=== PATIENT | female | born 1970 | race Caucasian/White ===

== ENCOUNTER 2019-01-26 14:51 | Emergency (ER) | payer BC, OTHER ==
[~2019-01-26] VITALS: Ht 157.5 cm; Wt 105.0 kg
[2019-01-26 15:46] LABS: URINE BILIRUBIN - DIPSTICK NEGATIVE (NEGATIVE); URINE BLOOD DIPSTICK LARGE (NEGATIVE); URINE COLOR YELLOW; URINE GLUCOSE - DIPSTICK NEGATIVE (NEGATIVE); URINE KETONE TRACE mg/dL (NEGATIVE); URINE LEUK ESTERASE NEGATIVE (NEGATIVE); URINE PROTEIN - DIPSTICK 100 mg/dL (NEG-TRACE); URINE SPECIFIC GRAVITY >=1.030
[2019-01-26 15:51] LABS: URINE NITRITE - DIPSTICK POSITIVE (Negative)
[2019-01-26 15:52] LABS: HEMATOCRIT 33.1 % (37.0-47.0); HEMOGLOBIN 10.1 g/dl (12.0-16.0); IMMATURE GRANULOCYTES 0.4 % (0.0-5.0); MEAN CELL VOLUME 82.1 fL CALC (80.0-100.0); MEAN CORPUSCULAR HGB 25.1 pG CALC (26.0-32.0); MEAN CORPUSCULAR HGB CONC 30.5 g/L CALC (32.0-36.0); NEUT# 6.17 thou/uL (2.00-7.15); RED BLOOD COUNT 4.03 mill/uL (4.20-5.60)
[2019-01-26 16:04] LABS: ALBUMIN 4.3 g/dL (3.2-5.0); ALKALINE PHOSPHATASE 57 u/l (38-126); ANION GAP 15 (6-22 (CALC)); BILIRUBIN, TOTAL 0.4 mg/dL (0.0-1.4); BUN 13 mg/dL (7-17); BUN/CREATININE RATIO 19 (12-20 (CALC)); CARBON DIOXIDE 23 mmol/l (22-30); CHLORIDE 107 mmol/l (95-108); CREATININE 0.7 mg/dL (0.5-1.0); GFR > 60 ML/MIN (>=60 (CALC)); GFR FOR AFR.AMER. > 60 ML/MIN (>=60 (CALC)); SGOT/AST 32 u/l (14-36); SODIUM 142 mmol/l (137-146); TOTAL PROTEIN 7.3 g/dL (6.3-8.2)
[2019-01-26 16:10] LABS: BARBITURATES NEGATIVE (NEGATIVE); COCAINE NEGATIVE (NEGATIVE); METHADONE NEGATIVE (NEGATIVE); OXCYCODONE NEGATIVE (NEGATIVE); TETRAHYDROCANNABIONOL NEGATIVE (NEGATIVE); TRICYLIC ANTIDEPRESSANTS NEGATIVE (NEGATIVE); URINE BACTERIA FEW hpf; URINE RBC TNTC RBC/hpf (0-5); URINE SQUAMOUS EPITHELIAL CELL FEW EPI/hpf (0-FEW)
[2019-01-26 16:17] LABS: MYOGLOBIN 21 ng/mL (0 - 62)
[2019-01-26] MEDS ORDERED: LOPRESSOR25 M1 PO (16:33)
[2019-01-26 16:54] VITALS: BP 158/77
== END 2019-01-26 16:56 | disposition home or self-care (01) | DRG 310 ==
LOC: ED 14:51
PROVIDERS: Emergency Medicine
DX: R00.2 Palpitations (principal)

== ENCOUNTER 2021-11-09 12:51 | Observation (INO) | payer SELFPAY ==
[~2021-11-09] VITALS: Ht 160 cm; Wt 110.7 kg
[2021-11-09] VITALS (18 sets, daily range): BP systolic 109–172; BP diastolic 55–103
[~2021-11-09 12:51] MED LIST: LOPRESSOR25 M1 PO
--- NOTE | 2021-11-09 13:49 | NUR ---
PT ESCORTED TO ROOM FOR EVALUATION OF LOW HGB REFERRAL FROM VANESSA BURNS
[2021-11-09 13:51] LABS: IMMATURE GRANULOCYTES 0.4 % (0.0-5.0); MEAN CELL VOLUME 69.2 fL CALC (80.0-100.0); MEAN CORPUSCULAR HGB 18.7 pG CALC (26.0-32.0); MEAN CORPUSCULAR HGB CONC 27.1 g/dL CAL (32.0-36.0); NEUT# 3.9 thou/uL (2.00-7.15); RED BLOOD COUNT 3.47 mill/uL (4.20-5.60); RED CELL DISTRI WIDTH 19.3 % (11.5-15.5)
[2021-11-09 13:54] LABS: HEMOGLOBIN 6.5 g/dl (12.0-16.0)
[2021-11-09 13:57] LABS: URINE BILIRUBIN - DIPSTICK NEGATIVE (NEGATIVE); URINE BLOOD DIPSTICK MODERATE (NEGATIVE); URINE COLOR YELLOW; URINE GLUCOSE - DIPSTICK NEGATIVE (NEGATIVE); URINE KETONE NEGATIVE (NEGATIVE); URINE LEUK ESTERASE NEGATIVE (NEGATIVE); URINE PH 6.5 (4.5-8.0); URINE PROTEIN - DIPSTICK NEGATIVE (NEG-TRACE); URINE SPECIFIC GRAVITY 1.025
[2021-11-09 14:00] LABS: ALBUMIN 3.9 g/dL (3.2-5.0); ALKALINE PHOSPHATASE 56 u/l (38-126); ANION GAP 13 (6-22 (CALC)); BILIRUBIN, TOTAL 0.5 mg/dL (0.0-1.4); BUN 10 mg/dL (7-17); BUN/CREATININE RATIO 16 (12-20 (CALC)); CARBON DIOXIDE 23 mmol/l (22-30); CHLORIDE 106 mmol/l (95-108); CREATININE 0.6 mg/dL (0.5-1.0); GFR > 60 ML/MIN (>=60 (CALC)); GFR FOR AFR.AMER. > 60 ML/MIN (>=60 (CALC)); POTASSIUM 3.7 mmol/l (3.5-5.1); SGOT/AST 30 u/l (14-36); SODIUM 137 mmol/l (137-146); TOTAL PROTEIN 7.4 g/dL (6.3-8.2)
[2021-11-09 14:19] LABS: URINE NITRITE - DIPSTICK NEGATIVE (Negative); URINE SQUAMOUS EPITHELIAL CELL MODERATE EPI/hpf (0-FEW)
--- NOTE | 2021-11-09 17:59 | NUR ---
PATIENT IS ANXIOUS ABOUT BEING ADMITTED AND ALL PROCEDURES. PATIENT ALSO HAS COVID. SHE HAD A NEGATIVE REACTION TO THE COVID VAX AND ONLY RECEIVED ONE DOSE OF THE MODERNA.
--- NOTE | 2021-11-09 18:30 | NUR ---
PT ARRIVED TO THE FLOOR VIA WHEELCHAIR AND ONE PERSON ASSISTANCE FROM THE ER. PT AMBULATORY TO THE BATHROOM INDEPENDANTLY. DENIES PAIN, SOB OR DISCOMFORT. ORIENTATED TO ROOM RIGHTS AND RESPONSIBILITIES AND CALL LIGHT. PT STATES UNDERSTANDING.
--- NOTE | 2021-11-09 20:00 | NUR ---
PHYSICAL ASSESMENT COMPLETE. PT CURRENTLY DENIES PAIN OR DISCOMFORT. SCHEDULED MEDICATIONS AND PRN MEDICATION ADMINISTERED, SEE E-MAR. PT DENIES ANY NEEDS AT THIS TIME. PLAN OF CARE REVIEWED, PT DENIES QUESTIONS, VERBALIZES UNDERSTANDING. ITEMS WITHIN REACH, BED LOCKED IN LOW POSITION W/ BEDRAILS UP X2. CALL ALONZO WITHIN REACH, AGREES TO CALL PRN.
--- NOTE | 2021-11-09 21:37 | NUR ---
PT RECEIVIMG BLOOD PRODUCT. PT TOLERATIMG TRANSFUSION WELL. WILL CONTINUE TO MONITOR.
[2021-11-10] VITALS: BP 119/60
[2021-11-10 00:12] VITALS: BP 137/63
--- NOTE | 2021-11-10 03:50 | NUR ---
PT LAYING IN BED WITH EYES CLOSED, APPEARS TO BE SLEEPING, APPEARS COMFORTABLE AND IN NO DISTRESS. RESPIRATIONS REGULAR AND UNLABORED. ITEMS REMAIN WITHIN REACH, CALL ALONZO REMAINS WITHIN REACH. BED REMAINS LOCKED AND IN LOW POSITION WITH BEDRAILS UP X2. WILL CONTINUE TO MONITOR.
[2021-11-10 04:00] VITALS: BP 120/70
[2021-11-10 06:10] LABS: HEMATOCRIT 28.1 % (37.0-47.0); HEMOGLOBIN 8.2 g/dl (12.0-16.0); MEAN CORPUSCULAR HGB 21.3 pG CALC (26.0-32.0); MEAN CORPUSCULAR HGB CONC 29.2 g/dL CAL (32.0-36.0); RED BLOOD COUNT 3.85 mill/uL (4.20-5.60); RED CELL DISTRI WIDTH 21.1 % (11.5-15.5)
[2021-11-10 06:42] LABS: BUN 10 mg/dL (7-17); BUN/CREATININE RATIO 17 (12-20 (CALC)); CARBON DIOXIDE 25 mmol/l (22-30); CHLORIDE 106 mmol/l (95-108); CREATININE 0.6 mg/dL (0.5-1.0); GFR > 60 ML/MIN (>=60 (CALC)); GFR FOR AFR.AMER. > 60 ML/MIN (>=60 (CALC)); MAGNESIUM 1.8 mg/dL (1.6-2.3); SODIUM 137 mmol/l (137-146)
[2021-11-10 06:50] LABS: ANION GAP 11 (6-22 (CALC)); POTASSIUM 4.5 mmol/l (3.5-5.1)
[2021-11-10 08:00] VITALS: BP 116/63
--- NOTE | 2021-11-10 09:59 | NUR ---
REPORT RECEIVE FROM JOE AYERS
[2021-11-10] MEDS ORDERED: FERROUS SULF325 M2 PO (10:53)
--- NOTE | 2021-11-10 12:26 | NUR ---
PATIENT ALERT AND ORIENTED X3. GOOD RESPIRATORY PATTERN IS DISCHARGED. EDUCATED PATIENT ABOUT FOLLOW UP WITH PCP, HOME MEDS AND NEW MEDICATION. PATIENT REFER UNDESTAND
== END 2021-11-10 11:49 | disposition home or self-care (01) | DRG 811 ==
LOC: ED 12:51 → ED-I 16:40 → ED 17:03 → MS2 17:04
PROVIDERS: Family Medicine; ADMIT Hospitalist; ATTEND Hospitalist
PROC: 30233N1 Transfusion of Nonautologous Red Blood Cells into Peripheral Vein, Percutaneous Approach (ICD-10-PCS; principal; 2021-11-09)
PROC: 30233N1 Transfusion of Nonautologous Red Blood Cells into Peripheral Vein, Percutaneous Approach (ICD-10-PCS; 2021-11-09)
DX: D62 Acute posthemorrhagic anemia (principal); U07.1 COVID-19; D25.9 Leiomyoma of uterus, unspecified
CPT/HCPCS: G0378; J1756; P9016